=== PATIENT | male | born 1995 | race African-American/Black ===

== ENCOUNTER 2020-04-16 17:10 | Emergency (ER) | payer SELFPAY ==
[~2020-04-16] VITALS: Ht 185.4 cm; Wt 73.0 kg
[2020-04-16 17:14] VITALS: BP 136/92
== END 2020-04-16 20:46 | disposition home or self-care (01) ==
LOC: ER 17:10
DX: R53.1 Weakness (principal)
CPT/HCPCS: 93005; 99283